=== PATIENT | female | born 1955 | race Caucasian/White ===

== ENCOUNTER 2021-09-16 09:26 | Outpatient (CLI) | payer OTHER | END 2021-09-16 09:27 | disposition home or self-care (01) | LOC: BICMAMMO 09:26 | PROVIDERS: ATTEND Registered Nurse | DX: Z12.31 Encounter for screening mammogram for malignant neoplasm of breast (principal); Z13.820 Encounter for screening for osteoporosis; Z78.0 Asymptomatic menopausal state | CPT/HCPCS: 77063; 77067; 77080 ==

== ENCOUNTER 2022-12-01 14:10 | Outpatient (CLI) | payer MEDICARE ==
[2022-12-01 15:09] LABS: Prothrombin Time 11.1 sec (9.5-12.1)
[2022-12-01 15:15] LABS: Sodium 139 mmol/L (136-145)
[2022-12-01 15:16] LABS: Anion Gap 14 mmol/L (10-20); BUN (Urea Nitrogen) 13 mg/dL (9.8-20.1); Calc. Creatinine Clearance 0 mL/min (70-130); Calcium 9.7 mg/dL (7.6-10.4); Carbon Dioxide 25 mmol/L (23-31); Chloride 105 mmol/L (98-107); Estimated GFR 73; Glucose 94 mg/dL (80-115); Potassium 4.6 mmol/L (3.5-5.1)
[2022-12-01 15:52] LABS: Hemoglobin 15.2 g/dL (12.0-15.5); Mean Corpuscular HGB CONC 34.2 g/dL (32.0-36.0); Mean Corpuscular Volume 90.6 fl (81.6-98.3); Mean Platelet Volume 10.9 fl (7.4-10.4); Platelet Count 268 10x3/uL (150-450); RBC Distribution Width 13.1 % (11.5-14.5); Red Blood Cell (RBC) Count 4.91 10x6/uL (3.90-5.03); White Blood Cell (WBC) Count 8.5 10x3/uL (3.5-10.5)
== END 2022-12-01 14:11 | disposition home or self-care (01) ==
LOC: LABBT 14:10
PROVIDERS: ATTEND Internal Medicine Cardiovascular Disease
DX: Z01.812 Encounter for preprocedural laboratory examination (principal); I48.19 Other persistent atrial fibrillation; R07.9 Chest pain, unspecified
CPT/HCPCS: 80048; 85027; 85610; 85730

== ENCOUNTER 2022-12-05 06:03 | Day surgery (SDC) | payer MEDICARE ==
[2022-12-02 13:19] VITALS: BMI 33.0
[2022-12-05] MEDS ORDERED: Benzocaine 20% Spray 60 ML CAN ONE (07:25)
[2022-12-05] MEDS ORDERED: PROPOFOL 200 MG/20 ML VIAL ONE (07:44)
[2022-12-05] MEDS ORDERED: Ondansetron PF 4 MG/2 ML Vial ONE (07:44)
[2022-12-05] MEDS ORDERED: Lidocaine 1% PF 5 ML VIAL ONE (07:44)
== END 2022-12-05 09:05 | disposition home or self-care (01) ==
LOC: SDC 06:03
PROVIDERS: ATTEND Internal Medicine Cardiovascular Disease
PROC: B246ZZ4 Ultrasonography of Right and Left Heart, Transesophageal (ICD-10-PCS; principal; 2022-12-05)
PROC: 5A2204Z Restoration of Cardiac Rhythm, Single (ICD-10-PCS; 2022-12-05)
DX: I48.19 Other persistent atrial fibrillation (principal); I42.9 Cardiomyopathy, unspecified; I08.1 Rheumatic disorders of both mitral and tricuspid valves; I70.0 Atherosclerosis of aorta; I11.0 Hypertensive heart disease with heart failure; I50.20 Unspecified systolic (congestive) heart failure; I25.10 Atherosclerotic heart disease of native coronary artery without angina pectoris; E78.5 Hyperlipidemia, unspecified; F17.210 Nicotine dependence, cigarettes, uncomplicated; E66.9 Obesity, unspecified; Z68.33 Body mass index [BMI] 33.0-33.9, adult; Z86.16 Personal history of COVID-19; Z79.01 Long term (current) use of anticoagulants; Z79.82 Long term (current) use of aspirin; Z79.899 Other long term (current) drug therapy; Z88.1 Allergy status to other antibiotic agents
CPT/HCPCS: 92960; 93005; 93010; 93312; J2405; J2704

== ENCOUNTER 2022-12-23 11:54 | Outpatient (CLI) | payer MEDICARE ==
[2022-12-23 13:52] LABS: Hemoglobin 15.5 g/dL (12.0-15.5); Mean Corpuscular HGB CONC 33.5 g/dL (32.0-36.0); Mean Corpuscular Hemoglobin 30.6 pg (27.0-33.0); Mean Corpuscular Volume 91.5 fl (81.6-98.3); Mean Platelet Volume 10.9 fl (7.4-10.4); Platelet Count 239 10x3/uL (150-450); RBC Distribution Width 13.2 % (11.5-14.5); Red Blood Cell (RBC) Count 5.06 10x6/uL (3.90-5.03); White Blood Cell (WBC) Count 8.7 10x3/uL (3.5-10.5)
[2022-12-23 14:19] LABS: Anion Gap 14 mmol/L (10-20); BUN (Urea Nitrogen) 12 mg/dL (9.8-20.1); Calc. Creatinine Clearance 0 mL/min (70-130); Calcium 9.5 mg/dL (7.8-10.44); Carbon Dioxide 26 mmol/L (23-31); Chloride 105 mmol/L (98-107); Estimated GFR 77; Glucose 81 mg/dL (80-115); Potassium 5.1 mmol/L (3.5-5.1); Sodium 140 mmol/L (136-145)
== END 2022-12-23 11:55 | disposition home or self-care (01) ==
LOC: LABBT 11:54
PROVIDERS: ATTEND Specialist
DX: Z01.818 Encounter for other preprocedural examination (principal); I48.0 Paroxysmal atrial fibrillation; Z20.822 Contact with and (suspected) exposure to COVID-19
CPT/HCPCS: 80048; 85027; 93005; 93010

== ENCOUNTER 2022-12-26 05:43 | Day surgery (SDC) | payer MEDICARE ==
[2022-12-23 09:54] VITALS: BMI 33.0
[2022-12-26] MEDS ORDERED: Heparin 10,000 UNITS/ 10 ML VIAL ONE ×2 (07:25→09:16)
[2022-12-26] MEDS ORDERED: FENTANYL 50 MCG/ML 1 ML VIAL ONE (08:32)
[2022-12-26] MEDS ORDERED: Esmolol 100 MG/10 ML VIAL ONE (08:35)
[2022-12-26] MEDS ORDERED: Lidocaine 1% PF 5 ML VIAL ONE (08:35)
[2022-12-26] MEDS ORDERED: Rocuronium Bromide 10 MG/ML (10ML VIAL) ONE (08:35)
[2022-12-26] MEDS ORDERED: Ondansetron PF 4 MG/2 ML Vial ONE (08:35)
[2022-12-26] MEDS ORDERED: Dexamethasone 20 MG/5 ML VIAL ONE (08:35)
[2022-12-26] MEDS ORDERED: PROPOFOL 200 MG/20 ML VIAL ONE (08:35)
[2022-12-26] MEDS ORDERED: PHENYLEPHRINE-NS 100 MCG/ML 10 ML SYRINGE ONE (08:35)
[2022-12-26] MEDS ORDERED: Isoproterenol 0.2 MG/1 ML AMP ONE (10:07)
[2022-12-26] MEDS ORDERED: SUGAMMADEX SODIUM 200 MG/2 ML VIAL ONE (10:17)
== END 2022-12-26 13:55 | disposition home or self-care (01) ==
LOC: SDC 05:43
PROVIDERS: ATTEND Specialist
PROC: B244ZZ3 Ultrasonography of Right Heart, Intravascular (ICD-10-PCS; principal; 2022-12-26)
PROC: 02583ZZ Destruction of Conduction Mechanism, Percutaneous Approach (ICD-10-PCS; 2022-12-26)
PROC: 02K83ZZ Map Conduction Mechanism, Percutaneous Approach (ICD-10-PCS; 2022-12-26)
DX: I48.19 Other persistent atrial fibrillation (principal); I48.4 Atypical atrial flutter; I10 Essential (primary) hypertension; E78.5 Hyperlipidemia, unspecified; Z79.01 Long term (current) use of anticoagulants; Z79.82 Long term (current) use of aspirin; Z79.899 Other long term (current) drug therapy; Z88.1 Allergy status to other antibiotic agents
CPT/HCPCS: 85347 ×2; 93005; 93623; 93655; 93656; C1732; C1759; C1760; C1884; C1893; C1894 ×3; J3010; J1100; J1644; J2405; J2704

== ENCOUNTER 2023-01-20 06:22 | Day surgery (SDC) | payer MEDICARE ==
[2023-01-18 11:41] VITALS: BMI 33.0
[2023-01-20] MEDS ORDERED: PROPOFOL 200 MG/20 ML VIAL ONE (10:37)
[2023-01-20] MEDS ORDERED: Lidocaine 1% PF 5 ML VIAL ONE (10:37)
== END 2023-01-20 12:08 | disposition home or self-care (01) ==
LOC: SDC 06:22
PROVIDERS: ATTEND Internal Medicine Cardiovascular Disease
PROC: 5A2204Z Restoration of Cardiac Rhythm, Single (ICD-10-PCS; principal; 2023-01-20)
DX: I48.19 Other persistent atrial fibrillation (principal); I10 Essential (primary) hypertension; F32.A Depression, unspecified; E78.5 Hyperlipidemia, unspecified; E55.9 Vitamin D deficiency, unspecified; F17.200 Nicotine dependence, unspecified, uncomplicated; I25.10 Atherosclerotic heart disease of native coronary artery without angina pectoris; E66.01 Morbid (severe) obesity due to excess calories; Z68.33 Body mass index [BMI] 33.0-33.9, adult; Z79.01 Long term (current) use of anticoagulants; Z79.899 Other long term (current) drug therapy; Z79.82 Long term (current) use of aspirin; Z90.49 Acquired absence of other specified parts of digestive tract; Z88.1 Allergy status to other antibiotic agents
CPT/HCPCS: 92960; 93005; 93010; 93312; J2704

== ENCOUNTER 2025-06-29 08:59 | Emergency (ER) | payer MEDICARE | END 2025-06-29 10:55 | disposition home or self-care (01) | LOC: ERS 08:59 | DX: T18.198A Other foreign object in esophagus causing other injury, initial encounter (principal); I48.91 Unspecified atrial fibrillation; I10 Essential (primary) hypertension; E78.5 Hyperlipidemia, unspecified; Z79.899 Other long term (current) drug therapy; Z87.891 Personal history of nicotine dependence; W44.8XXA Other foreign body entering into or through a natural orifice, initial encounter | CPT/HCPCS: 71045 ==

== ENCOUNTER 2025-08-05 09:38 | Outpatient (CLI) | payer MEDICARE ==
[2025-08-05 10:23] LABS: #Basophils 0.05 10x3/uL (0.0-0.2); #Eosinophils 0.17 10x3/uL (0.0-0.7); #Monocytes 0.57 10x3/uL (0.11-0.59); #Neutrophils 5.95 10x3/uL (1.40-6.50); %Basophils 0.5 % (0.0-1.0); %Eosinophils 1.8 % (0.0-10.0); %Lymphocytes 26.6 % (21.0-51.0); %Monocytes 6.2 % (0.0-10.0); %Neutrophils 64.5 % (42.0-75.0); Hematocrit 37.1 % (36.0-47.0); Hemoglobin 12.0 g/dL (12.0-16.0); Mean Corpuscular Hemoglobin 29.5 pg (27.0-31.0); Mean Corpuscular Volume 91.2 fL (78.0-98.0); Platelet Count 240 10x3/uL (130-400); Red Blood Cell (RBC) Count 4.07 mill/uL (4.20-5.40); White Blood Cell (WBC) Count 9.24 10x3/uL (4.8-10.8)
[2025-08-05 10:42] LABS: Anion Gap 10 mmol/L (10-20); BUN (Urea Nitrogen) 10 mg/dL (9.8-20.1); Calc. Creatinine Clearance 0 mL/min (70-130); Calcium 9.1 mg/dL (7.8-10.44); Carbon Dioxide 26 mmol/L (23-31); Chloride 106 mmol/L (98-107); Glucose 81 mg/dL (80-115); Potassium 4.2 mmol/L (3.5-5.1); Sodium 138 mmol/L (136-145)
[2025-08-05 10:48] LABS: INR-International Normal Ratio 1.0; Prothrombin Time 13.7 sec (12.0-14.7)
== END 2025-08-05 09:39 | disposition home or self-care (01) ==
LOC: LABBT 09:38
PROVIDERS: ATTEND Orthopaedic Surgery
DX: Z01.818 Encounter for other preprocedural examination (principal); M16.11 Unilateral primary osteoarthritis, right hip; M17.11 Unilateral primary osteoarthritis, right knee
CPT/HCPCS: 80048; 85025; 85610; 87081; 93005; 93010

== ENCOUNTER 2025-08-12 07:00 | Observation (INO) | payer MEDICARE ==
[2025-08-12] MEDS ORDERED: Tranexamic Acid 1,000 MG/10 ML VIAL ONE (07:26)
[2025-08-12] MEDS ORDERED: Vancomycin HCl 1.5 GM VIAL ONE (07:26)
[2025-08-12] MEDS ORDERED: Lidocaine 1.5% w/Epi 1:200K 30 ML VIAL (Epid Use) ONE (08:45)
[2025-08-12] MEDS ORDERED: oxyCODONE 5 MG TAB PO PRN (09:00)
[2025-08-12] MEDS ORDERED: diphenhydrAMINE 50 MG/ML VIAL IM PRN (09:00)
[2025-08-12] MEDS ORDERED: HYDROcodone/Acetaminophen 5/325 mg Tablet PO PRN (09:00)
[2025-08-12] MEDS ORDERED: diphenhydrAMINE 25 MG CAP PO PRN ×2 (09:00→11:57)
[2025-08-12] MEDS ORDERED: diphenhydrAMINE 50 MG/ML VIAL IVP PRN (09:00)
[2025-08-12] MEDS ORDERED: PROPOFOL 20 ML ONE (09:14)
[2025-08-12] MEDS ORDERED: fentaNYL PF 100 MCG/2 ML SYRINGE ONE ×2 (09:14→11:40)
[2025-08-12] MEDS ORDERED: Ondansetron PF 4 MG/2 ML Vial ONE (09:15)
[2025-08-12] MEDS ORDERED: Lidocaine 1% PF 5 ML VIAL ONE (09:15)
[2025-08-12] MEDS ORDERED: CEFAZOLIN 2 GM VIAL ONE (09:30)
[2025-08-12] MEDS ORDERED: Rocuronium Bromide 10 MG/ML (10ML VIAL) ONE (09:42)
[2025-08-12] MEDS ORDERED: PHENYLEPHRINE-NS 100 MCG/ML 10 ML SYRINGE ONE (09:58)
[2025-08-12] MEDS ORDERED: SUGAMMADEX SODIUM 200 MG/2 ML VIAL ONE (11:27)
[2025-08-12] MEDS: Ketorolac Tromethamine 30 MG (1 mL) VIAL IVP SCH (15:44)
[2025-08-12] MEDS: Ondansetron PF 4 MG/2 ML Vial IVP PRN (15:56)
[2025-08-12 17:05] VITALS: BMI 36.1
[2025-08-12] MEDS: Colestipol 1 GM TAB PO SCH (18:02)
[2025-08-12] MEDS: Ferrous Gluconate 324 MG TAB PO SCH (20:11)
[2025-08-12] MEDS: Senokot S 8.6-50 MG TAB PO SCH (20:12)
[2025-08-12] MEDS: Aspirin 81 mg Enteric Coated Tablet PO SCH (20:12)
[2025-08-12] MEDS: Metoprolol Succinate XL 50 MG ER.TAB PO SCH (20:12)
[2025-08-12] MEDS: Ipratropium Bromide 0.06% Nasal Inhaler 15ml EA NARE SCH (21:43)
[2025-08-12] MEDS: Acetaminophen 325 MG TAB PO PRN (22:56)
[2025-08-13] MEDS: FENTANYL 500 MCG/10 ML VIAL 500 MCG, Bupivacaine 0.75% 10 ML in Sodium Chloride 0.9% 80 ML EPIDURAL SCH (04:32)
[2025-08-13 05:23] LABS: Hematocrit 29.5 % (36.0-47.0); Hemoglobin 9.6 g/dL (12.0-16.0); Mean Corpuscular Hemoglobin 29.8 pg (27.0-31.0); Mean Corpuscular Volume 91.6 fL (78.0-98.0); Platelet Count 195 10x3/uL (130-400); Red Blood Cell (RBC) Count 3.22 mill/uL (4.20-5.40); White Blood Cell (WBC) Count 11.62 10x3/uL (4.8-10.8)
[2025-08-13] MEDS: Pantoprazole 40 MG DR.TAB PO SCH (09:15)
[2025-08-13] MEDS: Multivitamin W/ Minerals 1 TAB PO SCH (09:15)
[2025-08-13] MEDS: HYDROcodone/Acetaminophen 5/325 mg Tablet PO PRN (12:08)
[2025-08-13 13:05] VITALS: BP 111/72; TEMP 98.1
[2025-08-15] MEDS ORDERED: FLU (Fluad Triv) 25-26 (65UP)PF 45 MCG/0.5 ML Syringe IM ONE (09:00)
== END 2025-08-13 19:09 | disposition home or self-care (01) ==
LOC: SDC 07:00 → SURG B 13:13 → SDC 16:43 → SURG B 16:43 → SDC 08-13 19:09 → SURG B 08-13 19:09
PROVIDERS: ADMIT Orthopaedic Surgery; ATTEND Orthopaedic Surgery
PROC: 0SR90JZ Replacement of Right Hip Joint with Synthetic Substitute, Open Approach (ICD-10-PCS; principal; 2025-08-12)
PROC: 3E0T3BZ Introduction of Anesthetic Agent into Peripheral Nerves and Plexi, Percutaneous Approach (ICD-10-PCS; 2025-08-12)
DX: M16.11 Unilateral primary osteoarthritis, right hip (principal); I10 Essential (primary) hypertension; I48.91 Unspecified atrial fibrillation; Z90.49 Acquired absence of other specified parts of digestive tract; Z90.710 Acquired absence of both cervix and uterus; Z98.890 Other specified postprocedural states; Z88.1 Allergy status to other antibiotic agents
CPT/HCPCS: 27130; 64479; 72170; 73501; 85027; 97110 ×2; 97116; 97530 ×2; 97535; C1713; C1776; J1100; J1885 ×2; J2250; J2405; J2704; J3010 ×3; J3490 ×2; J7030 ×2; 36415